=== PATIENT | male | born 1940 | race Caucasian/White ===

== ENCOUNTER → 2020-06-02 14:48 | Outpatient (CLI) | payer OTHER, SELFPAY ==
--- NOTE | 2020-06-02 | DI.MRI.S_ITS ---
PROCEDURE: MR HEAD/BRAIN WO CON INDICATIONS: Mild cognitive impairment, so stated TECHNIQUE: Non-contrast axial T1 spin echo, axial T2 fast spin echo, sagittal and axial FLAIR, coronal T2 fast spin echo, axial gradient echo, axial diffusion and ADC through the brain. COMPARISON: None. FINDINGS: Image quality: Excellent. CSF spaces: Ventricles appear symmetric in size and shape. Basal cisterns are patent. No extra-axial fluid collections. Brain: No intracranial bleeds or mass effects. There is cerebral volume loss for age. There are periventricular and deep white matter chronic small vessel ischemic changes. Brainstem appears normal. Diffusion-weighted images show no acute ischemic insults. No chronic ischemic insults. Normal intravascular flow voids are present. Skull and face: Calvarial bone marrow is normal in signal. Orbits are normal. Sinuses: Sinuses and mastoids are clear. IMPRESSION: Intracranial study within normal limits for age, with note made of brain parenchymal volume loss and chronic small vessel ischemic change. Dictated by: Shayne Cervantes M.D. on 06/04/2020 at 9:00 Approved by: Shayne Cervantes M.D. on 06/04/2020 at 9:01
== END ==
PROVIDERS: PCP Family Medicine; Referring Provider Psychiatry & Neurology Neurology; Visit Provider Psychiatry & Neurology Neurology
DX: G31.84 Mild cognitive impairment of uncertain or unknown etiology (principal)
CPT/HCPCS: 70551

== ENCOUNTER 2022-02-22 11:38 | Emergency (ER) | payer OTHER, SELFPAY ==
[2022-02-22 12:03] VITALS: BP 119/70; PULSE 66; RESP 18; TEMP 36.9; O2SAT 98; BMI 29.8
--- NOTE | 2022-02-22 12:19 | DI.RAD.S_ITS ---
PROCEDURE: XR CHEST 1V INDICATIONS: altered mental status TECHNIQUE: One view of the chest was acquired. COMPARISON: None. FINDINGS: Surgical changes and devices: None. Lungs and pleura: On this semiupright portable chest examination, no large pneumothorax or large pleural effusions are seen. No focal infiltrates are seen. Low lung volumes are noted. This causes a crowded appearance to the lung markings and limits evaluation. Mediastinum: Mediastinal contours appear normal. Heart size is normal. Atherosclerotic calcification of the aortic arch is noted. Bones and chest wall: No suspicious bony lesions. Age-appropriate bony degenerative changes are seen. Overlying soft tissues appear unremarkable. IMPRESSION: Low lung volumes, without an acute abnormality seen by portable chest x-ray. Dictated by: Shayne Cervantes M.D. on 02/22/2022 at 12:37 Approved by: Shayne Cervantes M.D. on 02/22/2022 at 12:37
[2022-02-22 12:36] LABS: Ictotest Urine Negative (Negative)
[2022-02-22 12:40] LABS: UR Morphine/Opiate cutoff 300 Negative (Negative); Ur Creatinine Normal (Normal); Ur Specific Gravity Normal (Normal); Urine Amphetamines Negative (Negative); Urine Barbiturates Negative (Negative); Urine Benzodiazepines Negative (Negative); Urine Cocaine Negative (Negative); Urine MDMA Negative (Negative); Urine Methadone Negative (Negative); Urine Methamphetamines Negative (Negative); Urine Oxycodone Negative (Negative); Urine Phencyclidine Negative (Negative); Urine Tetrahydrocannabinol Negative (Negative); Urine Tricyclic Antidepressant Negative (Negative); Urine pH Normal (Normal)
[2022-02-22 12:41] LABS: Bacteria Urine Occasional (0-1); Hyaline Casts Urine 5-10/LPF; Mucus Urine 1+ (Negative); RBC Urine None Seen (0-5/HPF); Squamous Epithelial Cell Urine None Seen (0-5/HPF); WBC Urine 0-1/HPF (0-5/HPF)
[2022-02-22 12:42] LABS: Culture Indicated Urine Cult Not Indicated
[2022-02-22 12:43] LABS: Sperm Urine 0-1/HPF
[2022-02-22 12:50] LABS: Add Manual Diff / Slide Review NO; Basophils Absolute Auto 100 /uL (0-100); Basophils Percent Auto 1.5 % (0-2); Eosinophils Absolute Auto 200 /uL (0-450); Eosinophils Percent Auto 2.4 % (2-4); Hematocrit 41.7 % (41-53); Hemoglobin 14.4 g/dL (13.5-17.5); Lymphocytes Absolute Auto 1800 /uL (1100-4500); Lymphocytes Percent Auto 23.5 % (25-40); Mean Corpuscular HGB Conc 34.5 % (30-36); Mean Corpuscular Hemoglobin 30.1 PG (26-34); Mean Corpuscular Volume 87.4 fL (80-100); Monocytes Absolute Auto 700 /uL (0-900); Monocytes Percent Auto 9.3 % (3-14); Neutrophils Absolute Auto 5000 /uL (1500-7000); Neutrophils Percent Auto 63.3 % (50-75); Platelet Count 275 X10^3/uL (150-400); Red Blood Cell Count 4.77 X10^6/uL (4.5-5.9); Red Cell Distribution Width 14.9 % (11.6-14.8); White Blood Cell Count 7.9 X10^3/uL (4.5-11.0)
[2022-02-22 13:02] LABS: Ammonia (NH3) < 9 umol/L (9-30)
[2022-02-22 13:05] LABS: Alanine Aminotransferase 16 IU/L (<50); Albumin 4.2 g/dL (3.5-5.0); Albumin Globulin Ratio 1.2 (1.0-2.8); Alkaline Phosphatase 127 U/L (38-126); Aspartate Aminotransferase 17 IU/L (17-59); BUN Creatinine Ratio 22.6 (6-22); Bilirubin Total 1.3 mg/dL (0.2-1.3); Blood Urea Nitrogen 36 mg/dL (9-20); Calcium 9.6 mg/dL (8.4-10.2); Carbon Dioxide 17 mmol/L (22-32); Chloride 110 mmol/L (98-107); Estimated Glomerular Filt Rate 44 mL/min (>60); Globulin 3.5 g/dL (1.7-4.1); Glucose 187 mg/dL (80-110); HEMOLYSIS < 15 (0-50); Potassium 4.5 mmol/L (3.4-5.1); Sodium 140 mmol/L (137-145); Total Protein 7.7 g/dL (6.3-8.2)
--- NOTE | 2022-02-22 13:12 | ED_ITS ---
HPI - Altered Mental Status <MIGUEL Triana - Last Filed: 02/22/22 14:08> General Chief Complaint: Altered Mental Status Stated Complaint: Spiking BP in 180, Hallucinations/Delusions Time Seen by Provider: 02/22/22 12:02 Source: family Mode of arrival: Ambulatory History of Present Illness HPI narrative: This is a 81-year-old male with history of cognitive decline, presents to the emergency department with increased mental status changes that his daughter describes as difficulty using a water bottle, for getting the right words to things, overall being weaker than normal. She states that he recently had blood pressure medication changes due to his cataract surgery on 02/13/2022. He was previously on propranolol 80 mg 3 times a day and was reduced to 20 mg 3 times a day approximately 1 week ago for low blood pressures with syncope and dizziness at home. The plan was to wean from 20 mg 3 times a day to off but patient's blood pressure had been elevated up to 180 systolic, his daughter states that earlier today it was 217 systolic and she started his propanolol 20 mg again today. He is currently on amlodipine and now 20 mg of this propanolol. She states that she is concerned about a possible urinary tract infection wondering a cause for his recent change in mental status. Denies any upper respiratory illness symptoms, fever, chills or focal deficit. Patient's daughter states that patient has history stage 3 chronic kidney disease. Review of Systems <MIGUEL Triana - Last Filed: 02/22/22 14:08> Review of Systems Narrative: Review of systems is negative for acute abnormalities unless otherwise noted in HPI Exam <MIGUEL Triana - Last Filed: 02/22/22 14:08> Narrative Exam Narrative: Reviewed vitals signs and nursing notes. General: cooperative, comfortable, well groomed, without distress HEENT: symmetrical facial expressions, moist mucous membranes, EOMI, without conjunctival injection bilaterally, able to puff out cheeks, shrug shoulders, raise eyebrows and close eyes tightly with symmetry. Cardiovascular: regular rate and rhythm, no peripheral edema, warm extremities S1-S2 without murmur Respiratory: normal effort, able to speak in complete sentences, without wheezing, stridor, or abnormal breath sounds. No retractions or tachypnea. GI: abdomen soft, nontender to palpation, nondistended, without masses, rebound tenderness or exquisite tenderness with exam. MSK: moves all extremities, neurovascularly intact, no weakness, normal tone, able to lift both arms off of bed and hold as well as bilateral legs without weakness, denies any sensation changes bilaterally upper and lower extremities Skin: brisk capillary refill, without pallor or erythema Neuro: normal speech and cognition, A&O x2, clear speech Psych: mental status is pleasantly confused, congruent mood, normal affect, pleasant and cooperative, Initial Vital Signs Initial Vital Signs: Vital Signs Temperature 98.5 F 02/22/22 12:03 Pulse Rate 66 02/22/22 12:03 Respiratory Rate 18 02/22/22 12:03 Blood Pressure 119/70 02/22/22 12:03 Pulse Oximetry 98 02/22/22 12:03 Oxygen Delivery Method 02/22/22 12:03 <Ca Duron MD - Last Filed: 02/23/22 18:32> Initial Vital Signs Initial Vital Signs: Vital Signs Temperature 98.5 F 02/22/22 12:03 Pulse Rate 66 02/22/22 12:03 Respiratory Rate 18 02/22/22 12:03 Blood Pressure 119/70 02/22/22 12:03 Pulse Oximetry 98 02/22/22 12:03 Oxygen Delivery Method 02/22/22 12:03 Scores <MIGUEL Triana - Last Filed: 02/22/22 14:08> NIH Stroke Scale Level of Conciousness: Alert, keenly responsive Ask month/age: Answers one question correctly, intubated follow commands Open/close eyes, close hand: Performs both tasks correctly Best gaze horizontal: Normal Visual padilla: No visual loss Facial palsy: Normal symetrical movement Left arm drift: No drift for full 10 sec Right arm drift: No drift for full 10 sec Left leg drift: No drift for full 5 sec Right leg drift: No drift for full 5 sec Sensory on face/arms/legs: Normal, no sensory loss Best language: No aphasia, normal Dysarthria: Normal Extinction or inattention: No abnormality Course <MIGUEL Triana - Last Filed: 02/22/22 14:08> Orders Ordered: Discontinued Medications Sodium Chloride (Normal Saline 0.9%) 1,000 mls @ 1,000 mls/hr IV BOLUS PRN PRN Reason: Fluid replacement Last Infusion: 02/22/22 14:39 Dose: 0 mls/hr Documented By: Admin: 02/22/22 13:50 Dose: 1,000 mls/hr Documented By: CAYDEN Propranolol HCl (Propranolol 10 Mg Tablet) 10 mg PO NOW ONE Stop: 02/22/22 13:52 Last Admin: 02/22/22 13:57 Dose: Not Given Documented By: CAYDEN Reevaluation(s) Reevaluation #2: Re-evaluate the patient after his test came back, he is now hypertensive at 186/82, blood pressure was checked 5th 5 minutes later and it was then 217 systolic. Patient was given 20 mg of his own propanolol. His blood pressure was oz, getting 500 mL of normal saline for elevated creatinine. Patient has stage 3 kidney disease, creatinine is normal for his baseline per his daughter. Vital Signs Vital signs: Vital Signs - 8 hr 02/22/22 12:03 02/22/22 13:42 Temperature 98.5 F Pulse Rate 66 80 Respiratory Rate 18 18 Blood Pressure 119/70 186/82 H Pulse Oximetry 98 96 Oxygen Delivery Method Room Air <Ca Duron MD - Last Filed: 02/23/22 18:32> Orders Ordered: Discontinued Medications Sodium Chloride (Normal Saline 0.9%) 1,000 mls @ 1,000 mls/hr IV BOLUS PRN PRN Reason: Fluid replacement Last Infusion: 02/22/22 14:39 Dose: 0 mls/hr Documented By: Admin: 02/22/22 13:50 Dose: 1,000 mls/hr Documented By: CAYDEN Propranolol HCl (Propranolol 10 Mg Tablet) 10 mg PO NOW ONE Stop: 02/22/22 13:52 Last Admin: 02/22/22 13:57 Dose: Not Given Documented By: CAYDEN Vital Signs Vital signs: Vital Signs - 8 hr 02/22/22 12:03 02/22/22 13:42 Temperature 98.5 F Pulse Rate 66 80 Respiratory Rate 18 18 Blood Pressure 119/70 186/82 H Pulse Oximetry 98 96 Oxygen Delivery Method Room Air MDM - Altered Mental Status <MIGUEL Triana - Last Filed: 02/22/22 14:08> Lab Data Result diagrams: 02/22/22 12:40 02/22/22 12:40 Labs: Lab Results 02/22/22 02/22/22 02/22/22 Range/Units 12:29 12:29 12:40 WBC 7.9 (4.5-11.0) X10^3/uL RBC 4.77 (4.5-5.9) X10^6/uL Hgb 14.4 (13.5-17.5) g/dL Hct 41.7 (41-53) % MCV 87.4 (80-100) fL MCH 30.1 (26-34) PG MCHC 34.5 (30-36) % RDW 14.9 H (11.6-14.8) % Plt Count 275 (150-400) X10^3/uL Neut % (Auto) 63.3 (50-75) % Lymph % (Auto) 23.5 L (25-40) % Geary % (Auto) 9.3 (3-14) % Eos % (Auto) 2.4 (2-4) % Baso % (Auto) 1.5 (0-2) % Neut # (Auto) 5000 (9261-9156) /uL Lymph # (Auto) 1800 (3628-1126) /uL [place] # (Auto) 700 (0-900) /uL Eos # (Auto) 200 (0-450) /uL Baso # (Auto) 100 (0-100) /uL Sodium (137-145) mmol/L Potassium (3.4-5.1) mmol/L Chloride (98-107) mmol/L Carbon Dioxide (22-32) mmol/L BUN (9-20) mg/dL Creatinine (0.66-1.25) mg/dL Estimated GFR (>60) mL/min BUN/Creatinine Ratio (6-22) Glucose (80-110) mg/dL Calcium (8.4-10.2) mg/dL Total Bilirubin (0.2-1.3) mg/dL AST (17-59) IU/L ALT (<50) IU/L Alkaline Phosphatase (38-126) U/L Ammonia (9-30) umol/L Total Protein (6.3-8.2) g/dL Albumin (3.5-5.0) g/dL Globulin (1.7-4.1) g/dL Albumin/Globulin Ratio (1.0-2.8) Ur Bilirubin Confirm Negative (Negative) Urine RBC None seen (0-5/HPF) Urine WBC 0-1/hpf (0-5/HPF) Ur Squamous Epith Cells None seen (0-5/HPF) Urine Bacteria Occasional (0-1) (None) Hyaline Casts 5-10/lpf (None) Urine Mucus 1+ H (Negative) Urine Sperm 0-1/hpf Ur Culture Indicated? Cult not indicated U Opiates 300ng/mL cut Negative (Negative) Ur Oxycodone Screen Negative (Negative) Urine Methadone Screen Negative (Negative) Ur Barbiturates Screen Negative (Negative) U Tricyclic Antidepress Negative (Negative) Ur Phencyclidine Scrn Negative (Negative) Ur Amphetamines Screen Negative (Negative) U Methamphetamines Scrn Negative (Negative) Ur MDMA Scrn (Ecstasy) Negative (Negative) U Benzodiazepines Scrn Negative (Negative) Urine Cocaine Screen Negative (Negative) U Marijuana (THC) Screen Negative (Negative) SARS-CoV-2 (PCR) (Negative) 02/22/22 02/22/22 02/22/22 Range/Units 12:40 12:40 13:00 WBC (4.5-11.0) X10^3/uL RBC (4.5-5.9) X10^6/uL Hgb (13.5-17.5) g/dL Hct (41-53) % MCV (80-100) fL MCH (26-34) PG MCHC (30-36) % RDW (11.6-14.8) % Plt Count (150-400) X10^3/uL Neut % (Auto) (50-75) % Lymph % (Auto) (25-40) % [place] % (Auto) (3-14) % Eos % (Auto) (2-4) % Baso % (Auto) (0-2) % Neut # (Auto) (3467-0604) /uL Lymph # (Auto) (2542-0206) /uL Geary # (Auto) (0-900) /uL Eos # (Auto) (0-450) /uL Baso # (Auto) (0-100) /uL Sodium 140 (137-145) mmol/L Potassium 4.5 (3.4-5.1) mmol/L Chloride 110 H (98-107) mmol/L Carbon Dioxide 17 L (22-32) mmol/L BUN 36 H (9-20) mg/dL Creatinine 1.59 H (0.66-1.25) mg/dL Estimated GFR 44 L (>60) mL/min BUN/Creatinine Ratio 22.6 H (6-22) Glucose 187 H (80-110) mg/dL Calcium 9.6 (8.4-10.2) mg/dL Total Bilirubin 1.3 (0.2-1.3) mg/dL AST 17 (17-59) IU/L ALT 16 (<50) IU/L Alkaline Phosphatase 127 H (38-126) U/L Ammonia < 9 L (9-30) umol/L Total Protein 7.7 (6.3-8.2) g/dL Albumin 4.2 (3.5-5.0) g/dL Globulin 3.5 (1.7-4.1) g/dL Albumin/Globulin Ratio 1.2 (1.0-2.8) Ur Bilirubin Confirm (Negative) Urine RBC (0-5/HPF) Urine WBC (0-5/HPF) Ur Squamous Epith Cells (0-5/HPF) Urine Bacteria (None) Hyaline Casts (None) Urine Mucus (Negative) Urine Sperm Ur Culture Indicated? U Opiates 300ng/mL cut (Negative) Ur Oxycodone Screen (Negative) Urine Methadone Screen (Negative) Ur Barbiturates Screen (Negative) U Tricyclic Antidepress (Negative) Ur Phencyclidine Scrn (Negative) Ur Amphetamines Screen (Negative) U Methamphetamines Scrn (Negative) Ur MDMA Scrn (Ecstasy) (Negative) U Benzodiazepines Scrn (Negative) Urine Cocaine Screen (Negative) U Marijuana (THC) Screen (Negative) SARS-CoV-2 (PCR) Negative (Negative) Urine Dip Bedside Urine Glucose Negative Bedside Urine Bilirubin + 1 Bedside Urine Ketone +/- 5 Urine Specific [place] 1.030 Bedside Urine Occult Blood - Negative Bedside Urine pH 5 Bedside Urine Protein + 30 Bedside Urine Urobilinogen - Negative Bedside Urine Nitrite - Negative Bedside Urine Leukocytes - Negative Esterase Imaging Data Chest x-ray: Radiologist's Impression: PROCEDURE:? XR CHEST 1V ? INDICATIONS:? altered mental status ? TECHNIQUE:? One view of the chest was acquired.? ? COMPARISON:? None. ? FINDINGS:? ? Surgical changes and devices:? None.? ? Lungs and pleura:? On this semiupright portable chest examination, no large pneumothorax or large pleural effusions are seen.? No focal infiltrates are seen.? Low lung volumes are noted. This causes a crowded appearance to the lung markings and limits evaluation.? ? Mediastinum:? Mediastinal contours appear normal.? Heart size is normal.? Atherosclerotic calcification of the aortic arch is noted.? ? Bones and chest wall:? No suspicious bony lesions.? Age-appropriate bony degenerative changes are seen.? Overlying soft tissues appear unremarkable.? IMPRESSION:? Low lung volumes, without an acute abnormality seen by portable chest x-ray. ? ? ? Dictated by: Shayne Cervantes M.D. on 02/22/2022 at 12:37 ? ? Approved by: Shayne Cervantes M.D. on 02/22/2022 at 12:37 ? ECG Data Interpretation: EKG independently reviewed by myself at 1242 reveals normal sinus rhythm at 64 bpm with regular axis and intervals. No STEMI, ST segment changes, arrhythmia, or acute ischemic changes. MDM Narrative Medical decision making narrative: This is a 81-year-old male who is brought into the emergency department by his daughter for concern about altered mental status and hypertension with concern for possible infection door mental status changes from his increased blood pressure. Overall, patient's workup is reassuring, he was interactive, without weakness, and has a history dementia without any focal neuro deficits on my exam. His NIH was 1 and he was able to complete all tasks except for accurately identifying the month and not able to read a clock. Patient is pleasantly confused without fever, shortness of breath, cough, urinary infection, leukocytosis, anemia, or any significant abnormal findings on his lab work. His COVID PCR is negative, urine toxicology screen is negative, chest x-ray does show any focal opacities. Urine culture showed 0-1 bacteria and was sent for culture. Discussed these findings with patient's daughter who states understanding, she will encourage patient to stay hydrated, look for focal signs of change and check his temperature. They will schedule follow-up appointment with her primary care provider for a recheck next week. I encouraged him to continue using the propanolol at 20 mg 3 times daily and to titrate as needed for hypertension. When he is calm and lying down, his blood pressure initially was 117 systolic, a quickly went to 200s systolic with activity so he does benefit from blood pressure control. Did not have any mental status changes between the 2 blood pressures. He denies chest pain, any acute pain anywhere, and they were given strict return precautions to return for any worsening of his symptoms. EKG was without arrhythmia, tachycardia, or ST changes. Patient is appropriate and amenable to discharge home. Vital signs are stable on repeat examination is unremarkable. Patient has been informed of results. Patient has been given strict return to ER precautions for any new or worsening symptoms. Patient understands to follow up closely with outpatient providers as instructed. Patient understands plan and agrees to discharge home. All questions and concerns answered at this time. <Ca Duron MD - Last Filed: 02/23/22 18:32> Lab Data Labs: Lab Results 02/22/22 02/22/22 02/22/22 Range/Units 12:29 12:29 12:40 WBC 7.9 (4.5-11.0) X10^3/uL RBC 4.77 (4.5-5.9) X10^6/uL Hgb 14.4 (13.5-17.5) g/dL Hct 41.7 (41-53) % MCV 87.4 (80-100) fL MCH 30.1 (26-34) PG MCHC 34.5 (30-36) % RDW 14.9 H (11.6-14.8) % Plt Count 275 (150-400) X10^3/uL Neut % (Auto) 63.3 (50-75) % Lymph % (Auto) 23.5 L (25-40) % [place]ary % (Auto) 9.3 (3-14) % Eos % (Auto) 2.4 (2-4) % Baso % (Auto) 1.5 (0-2) % Neut # (Auto) 5000 (0150-5935) /uL Lymph # (Auto) 1800 (3648-8815) /uL [place] # (Auto) 700 (0-900) /uL Eos # (Auto) 200 (0-450) /uL Baso # (Auto) 100 (0-100) /uL Sodium (137-145) mmol/L Potassium (3.4-5.1) mmol/L Chloride (98-107) mmol/L Carbon Dioxide (22-32) mmol/L BUN (9-20) mg/dL Creatinine (0.66-1.25) mg/dL Estimated GFR (>60) mL/min BUN/Creatinine Ratio (6-22) Glucose (80-110) mg/dL Calcium (8.4-10.2) mg/dL Total Bilirubin (0.2-1.3) mg/dL AST (17-59) IU/L ALT (<50) IU/L Alkaline Phosphatase (38-126) U/L Ammonia (9-30) umol/L Total Protein (6.3-8.2) g/dL Albumin (3.5-5.0) g/dL Globulin (1.7-4.1) g/dL Albumin/Globulin Ratio (1.0-2.8) Ur Bilirubin Confirm Negative (Negative) Urine RBC None seen (0-5/HPF) Urine WBC 0-1/hpf (0-5/HPF) Ur Squamous Epith Cells None seen (0-5/HPF) Urine Bacteria Occasional (0-1) (None) Hyaline Casts 5-10/lpf (None) Urine Mucus 1+ H (Negative) Urine Sperm 0-1/hpf Ur Culture Indicated? Cult not indicated U Opiates 300ng/mL cut Negative (Negative) Ur Oxycodone Screen Negative (Negative) Urine Methadone Screen Negative (Negative) Ur Barbiturates Screen Negative (Negative) U Tricyclic Antidepress Negative (Negative) Ur Phencyclidine Scrn Negative (Negative) Ur Amphetamines Screen Negative (Negative) U Methamphetamines Scrn Negative (Negative) Ur MDMA Scrn (Ecstasy) Negative (Negative) U Benzodiazepines Scrn Negative (Negative) Urine Cocaine Screen Negative (Negative) U Marijuana (THC) Screen Negative (Negative) SARS-CoV-2 (PCR) (Negative) 02/22/22 02/22/22 02/22/22 Range/Units 12:40 12:40 13:00 WBC (4.5-11.0) X10^3/uL RBC (4.5-5.9) X10^6/uL Hgb (13.5-17.5) g/dL Hct (41-53) % MCV (80-100) fL MCH (26-34) PG MCHC (30-36) % RDW (11.6-14.8) % Plt Count (150-400) X10^3/uL Neut % (Auto) (50-75) % Lymph % (Auto) (25-40) % [place] % (Auto) (3-14) % Eos % (Auto) (2-4) % Baso % (Auto) (0-2) % Neut # (Auto) (7124-7180) /uL Lymph # (Auto) (3173-9346) /uL [place]ary # (Auto) (0-900) /uL Eos # (Auto) (0-450) /uL Baso # (Auto) (0-100) /uL Sodium 140 (137-145) mmol/L Potassium 4.5 (3.4-5.1) mmol/L Chloride 110 H (98-107) mmol/L Carbon Dioxide 17 L (22-32) mmol/L BUN 36 H (9-20) mg/dL Creatinine 1.59 H (0.66-1.25) mg/dL Estimated GFR 44 L (>60) mL/min BUN/Creatinine Ratio 22.6 H (6-22) Glucose 187 H (80-110) mg/dL Calcium 9.6 (8.4-10.2) mg/dL Total Bilirubin 1.3 (0.2-1.3) mg/dL AST 17 (17-59) IU/L ALT 16 (<50) IU/L Alkaline Phosphatase 127 H (38-126) U/L Ammonia < 9 L (9-30) umol/L Total Protein 7.7 (6.3-8.2) g/dL Albumin 4.2 (3.5-5.0) g/dL Globulin 3.5 (1.7-4.1) g/dL Albumin/Globulin Ratio 1.2 (1.0-2.8) Ur Bilirubin Confirm (Negative) Urine RBC (0-5/HPF) Urine WBC (0-5/HPF) Ur Squamous Epith Cells (0-5/HPF) Urine Bacteria (None) Hyaline Casts (None) Urine Mucus (Negative) Urine Sperm Ur Culture Indicated? U Opiates 300ng/mL cut (Negative) Ur Oxycodone Screen (Negative) Urine Methadone Screen (Negative) Ur Barbiturates Screen (Negative) U Tricyclic Antidepress (Negative) Ur Phencyclidine Scrn (Negative) Ur Amphetamines Screen (Negative) U Methamphetamines Scrn (Negative) Ur MDMA Scrn (Ecstasy) (Negative) U Benzodiazepines Scrn (Negative) Urine Cocaine Screen (Negative) U Marijuana (THC) Screen (Negative) SARS-CoV-2 (PCR) Negative (Negative) Urine Dip Bedside Urine Glucose Negative Bedside Urine Bilirubin + 1 Bedside Urine Ketone +/- 5 Urine Specific [place] 1.030 Bedside Urine Occult Blood - Negative Bedside Urine pH 5 Bedside Urine Protein + 30 Bedside Urine Urobilinogen - Negative Bedside Urine Nitrite - Negative Bedside Urine Leukocytes - Negative Esterase Discharge Plan Departure Patient Disposition: Home Clinical Impression: Hypertension Qualifiers: Hypertension type: unspecified Qualified Code(s): I10 - Essential (primary) hypertension Dementia Qualifiers: Dementia type: unspecified type Dementia severity: moderate Dementia behavioral or psychological symptom: unspecified whether behavioral, psychotic, or mood disturbance or anxiety Qualified Code(s): F03.B0 - Unspecified dementia, moderate, without behavioral disturbance, psychotic disturbance, mood disturbance, and anxiety Instructions: Dementia, High Blood Pressure, Chronic Kidney Disease, DI for Altered Mental Status Activity Restrictions/Additional Instructions: *You have been diagnosed with blood pressure fluctuations. His altered mental status could be an extension of his dementia, it is possible that when his blood pressure gets to the lower range, he may be more tired than usual, low being around 100 systolic. Please use your propanolol 20 mg as needed for hypertension 3 times daily. If his blood pressure is closer to normal, top num raffaele being 120-140, okay to give 10 mg instead of 20. Please recheck his blood pressure if he is acting differently and recheck it if the number is not what you would expect. Please schedule a follow-up appointment with Maame mullins, I will send this chart to her, please let them know that we did not find any dangerous signs of illness today and/or a cause to this otherwise. Please ensure that he stays hydrated, thank you for bringing him in, I hope that he feels better soon. *What to do: *Please continue to take your regular medications as directed. [ ] New medication prescriptions sent to your pharmacy: [ ] [ ] New medication written as a paper prescription [x ] No new medications given *Please follow up with your primary care provider in 2-3 days, call for an appointment. Let them know you were seen in the Emergency Department and that we asked that you be seen for follow-up. We will electronically transmit a record of today's note if your PCP is in our system *If you do not have a primary care provider please contact [phone] to establish care with one of the [facility] primary care providers. *Return to Emergency Department if you should have any new, worsening, or concerning symptoms, such as [fever greater than 101F, chills, worsening pain, persistent vomiting or other bothersome symptoms]. Referrals: Maame Dennison ARNP [Primary Care Provider] - Visit Report Forms: Patient Portal/API <Ca Duron MD - Last Filed: 02/23/22 18:32> Cosign ED Attending Cosignature Attestation: I was immediately available in the department for consultation throughout this patient's visit. I agree with documentation as above. Ca Duron MD
[2022-02-22 13:42] VITALS: BP 186/82; PULSE 80; RESP 18; O2SAT 96
[2022-02-22] MEDS: SODIUM CHLORIDE 0.9% 1,000 ML 1000 ML IV (13:50)
[2022-02-22 13:59] LABS: COVID19 -Nasal RAPID Negative (Negative)
[2022-02-22 14:17] VITALS: BP 192/80; PULSE 63; RESP 18; O2SAT 98
[2022-02-22 14:36] VITALS: BP 186/77
== END 2022-02-22 14:41 | disposition home or self-care (01) ==
PROVIDERS: Emergency Medicine; Emergency Provider Nurse Practitioner Critical Care Medicine; PCP Registered Nurse
DX: I10 Essential (primary) hypertension (principal); F03.B0 Unspecified dementia, moderate, without behavioral disturbance, psychotic disturbance, mood disturbance, and anxiety; N18.30 Chronic kidney disease, stage 3 unspecified; Z20.822 Contact with and (suspected) exposure to COVID-19
CPT/HCPCS: 36415; 71045; 80053; 80305; 81003; 81015; 82140; 85025; 87077; 87086; 87147; 87186; 87635; 93005; 99284; C9803